=== PATIENT | male | born 1970 | race Caucasian/White ===

== ENCOUNTER 2016-12-12 22:39 | Emergency (ER) | payer OTHER ==
[~2016-12-12 22:39] MED LIST: APRES25 PO; ASA5GR PO; ASAB PO; ASABAYER PO; ASPIRIN PO; ATROVENTUD INH; CAT3 PO; COMBIVENT RESPIM4 GM INH; DUONEB INH; FISH-EPA1000 MG PO; FLOMAX4 PO; FLONASE NAS; HCTZ50B PO; HYDROCHLOROT12.5 MG PO; HYDROCHLOROT50 MG PO; IBU800 PO; IMDUR30 PO; IMOD PO; ISOSORBIDE PO; KDUR20 PO; KLOR-CON M2020 MEQ PO; L20 PO; L40 PO; LIPITOR20 PO; LIQUID TEARS OPH; LISINOPRIL40 MG PO; LONITEN2.5 PO; LOP100 PO; LORT7 PO; LYRICA150 MG PO; MONOKET20 PO; MUCINEX600 MG PO; MULTIVITAMI1 PO; NITROSTAT0.4 MG SL; NORCO1 TA1 PO; NORCO1 TAB PO; P20 PO; PEP20 PO; PERCOCET1 TA4 PO; PLAVIX PO; PR25 PO; PRIN20 PO; PROAIR HFA INH; PROVENTSOL INH; ROXICODONE15 MG PO; STERAPRED DS10 MG PO; SYMBICORT 160/41 INH INH; TOPROL PO; TOPXL100 PO; TOPXL50 PO; VIB100 PO; VISINE0.05 % OPH; XANAX1 MG PO; XANAX2 MG PO; ZESTRIL20 MG PO; ZYDONE1 TA2 PO; [UNRECOGNIZED DRUG - OTHER] INH
== END 2016-12-13 02:32 | disposition home or self-care (01) ==
LOC: ER 22:39
DX: R06.00 Dyspnea, unspecified (principal); I12.9 Hypertensive chronic kidney disease with stage 1 through stage 4 chronic kidney disease, or unspecified chronic kidney disease; N18.9 Chronic kidney disease, unspecified; I25.10 Atherosclerotic heart disease of native coronary artery without angina pectoris; F17.200 Nicotine dependence, unspecified, uncomplicated; Z95.5 Presence of coronary angioplasty implant and graft; Z88.2 Allergy status to sulfonamides; Z88.1 Allergy status to other antibiotic agents; Z88.5 Allergy status to narcotic agent; Z88.8 Allergy status to other drugs, medicaments and biological substances; Z79.82 Long term (current) use of aspirin; Z79.899 Other long term (current) drug therapy
CPT/HCPCS: 80048; 83735; 83880; 84484; 85025; 85610; 85730; 93005; 99285